=== PATIENT | male | born 1960 | race Caucasian/White ===

== ENCOUNTER 2017-08-11 12:01 | Emergency (ER) | payer OTHER ==
[~2017-08-11] VITALS: Ht 182.9 cm; Wt 100.7 kg
[2017-08-11 15:16] VITALS: BP 133/85
== END 2017-08-11 15:18 | disposition left against medical advice (07) ==
LOC: FSED 12:01
DX: R42 Dizziness and giddiness (principal); G45.9 Transient cerebral ischemic attack, unspecified; I10 Essential (primary) hypertension; E78.5 Hyperlipidemia, unspecified
CPT/HCPCS: 70450; 71046; 80053; 80307; 81003; 82553; 84484; 85025; 85379; 93005; 99284